=== PATIENT | female | born 1985 | race Caucasian/White ===

== ENCOUNTER 2022-08-10 02:16 | Emergency (ER) | payer OTHER ==
[~2022-08-10] VITALS: Ht 175.3 cm; Wt 117.9 kg
[2022-08-10 02:39] LABS: BASOPHILS # (AUTO) 0.1 (0.0-0.1); BASOPHILS % 0.5 % (0.0-1.0); EOSINOPHILS # (AUTO) 0.3 (0.0-0.4); EOSINOPHILS % 2.8 % (0.0-6.0); HEMATOCRIT 38.6 % (34.2-44.1); HEMOGLOBIN 12.4 g/dL (12.0-16.0); LYMPHOCYTES # (AUTO) 3.1 (1.0-3.2); LYMPHOCYTES % 31.6 % (18.0-39.1); MEAN CORPUSCULAR HEMOGLOBIN 24.4 pg (28-32); MEAN CORPUSCULAR HGB CONC 32.1 g/dL (31-35); MONOCYTES # (AUTO) 0.5 (0.2-0.8); MONOCYTES % 5.2 % (4.4-11.3); NEUTROPHILS # (AUTO) 5.9 (2.1-6.9); NEUTROPHILS % 59.5 % (38.7-80.0); PLATELET COUNT 367 x10e3/uL (140-360); RED BLOOD COUNT 5.08 x10e6/uL (3.6-5.1); RED CELL DISTRIBUTION WIDTH 17.5 % (11.7-14.4)
[2022-08-10 03:00] LABS: ALANINE AMINOTRANSFERASE 16 IU/L (0-55); ALBUMIN 3.7 g/dL (3.5-5.0); ALBUMIN/GLOBULIN RATIO 1.1 (0.8-2.0); ALKALINE PHOSPHATASE 109 IU/L (40-150); ANION GAP 11.9 mmol/L (8-16); BLOOD UREA NITROGEN 10 mg/dL (7-26); BUN/CREATININE RATIO 12 (6-25); CARBON DIOXIDE 24 mmol/L (22-29); CHLORIDE 108 mmol/L (98-107); CREATINE KINASE 59 IU/L (29-168); CREATININE, SERUM 0.83 mg/dL (0.57-1.11); GLUCOSE 92 mg/dL (74-118); POTASSIUM 3.9 mmol/L (3.5-5.1); SODIUM 140 mmol/L (136-145)
[2022-08-10 03:16] LABS: AMPHETAMINES SCREEN,URINE POSITIVE (NEGATIVE); BENZODIAZEPINES SCREEN,URINE NEGATIVE (NEGATIVE); PHENCYCLIDINE SCREEN,URINE NEGATIVE (NEGATIVE)
[2022-08-10] MEDS ORDERED: PREDNISONE20 MG PO (03:57)
[2022-08-10] MEDS ORDERED: VENTOLIN HFA18 GM INH (03:57)
[2022-08-10 04:11] VITALS: BP 119/67; PULSE 85; RESP 16; TEMP 98.5; O2SAT 100
== END 2022-08-10 04:00 | disposition home or self-care (01) ==
LOC: ER 02:20
DX: R06.00 Dyspnea, unspecified (principal); F15.10 Other stimulant abuse, uncomplicated; D50.9 Iron deficiency anemia, unspecified; Z20.822 Contact with and (suspected) exposure to COVID-19
CPT/HCPCS: 36415; 71045; 80053; 80307; 81025; 82550; 82553; 83690; 83880; 84484; 85025; 85379; 93005; 99284; U0002